=== PATIENT | male | born 1970 | race Caucasian/White ===

== ENCOUNTER 2016-08-26 15:02 | Emergency (ER) ==
--- NOTE | 2016-08-26 15:41 | EKG Report ---
Test Performed on : 08/26/2016 3:36:45 PM Test Reason : Chest Pain Blood Pressure : / mmHG Vent. Rate : 090 BPM Atrial Rate : 090 BPM P-R Int : 172 ms QRS Dur : 082 ms QT Int : 356 ms P-R-T Axes : 045 072 041 degrees QTc Int : 435 ms Normal sinus rhythm. Normal ECG No previous ECGs available Unconfirmed Result
[2016-08-26] MEDS ORDERED: PHENERGAN IM ONE (16:45)
[2016-08-26] MEDS ORDERED: NUBAIN IM ONE (16:45)
--- NOTE | 2016-08-26 17:04 | PROVIDER DOCUMENTATION ---
HPI-General Adult - General Source: patient - History of Present Illness -Gen Adult Nature of Presenting Problems: Pt is a 46 yom who presents to ER with CC of anxiety and chest pain. Pt reports that his daughter has been missing x6 days. Pt reports that today, he began to develop anterior chest wall pain and sob. Pt reports that he has also had a migraine headache x6 days, with nuasea and photophobia/lightheadedness. Pt denies cough/fever/chills. Location of Pain/Injury: reports: head, chest Pain Radiation: reports: no radiation Quality of Pain: reports: aching, dull Severity: reports: moderate Onset/Duration: reports: 6 days ago, this morning Timing: reports: constant Associated Symptoms: reports: anxiety, chest pain, dizziness, fever/chills, headaches, nausea. 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 Time Seen by Provider: 08/26/16 16:31 Allergies/Adverse Reactions: Patient Allergies Allergy/AdvReac Type Severity Reaction Status Date / Time No Known Allergies Allergy Verified 08/26/16 18:26 Home Medications: Home Medication List Medication Instructions Recorded Confirmed Last Taken Type Ibuprofen 800 mg PO PRN PRN 01/03/15 01/03/15 01/02/15 15:00 History Ondansetron HCl [Zofran] 4 mg PO Q8H PRN #15 tablet 01/03/15 Unknown Rx Tramadol HCl [Ultram] 50 mg PO Q6H PRN #20 tablet 01/03/15 Unknown Rx Diazepam [Valium] 5 mg PO HS #14 tablet 02/28/15 Unknown Rx Lorazepam [Ativan] 1 mg PO QHS #7 tablet 08/26/16 Unknown Rx Review of Systems - Adult - REVIEW OF SYSTEMS - ADULT Constitutional: denies: chills, fever, fatique, night sweats, weight loss Eyes: reports: no symptoms reported Ears, Nose, Mouth & Throat: reports: no symptoms reported Cardiovascular: reports: chest pain. denies: edema, heart murmur, irregular heart rate, palpitations, poor circulation, syncope Respiratory: reports: shortness of breath. denies: cough, dyspnea on exertion, excessive sputum production, pleurisy, wheezing Gastrointestinal: reports: nausea. denies: abdominal pain, hematemesis, constipation, diarrhea, difficulty swallowing, frequent heartburn, poor appetite , vomiting Genitourinary: reports: no symptoms reported Musculoskeletal: reports: no symptoms reported Integumentary: reports: no symptoms reported Neurological: reports: dizziness/vertigo, headache/migraines. denies: ataxia, loss of balance, numbness, paresthesia, seizure, slurred speech, syncope, tremors Psychiatric: reports: anxiety. denies: anti-depressant use, alcohol/drug dependence, depression, emotional problems, insomnia, panic attacks, suicidal thoughts Endocrine: reports: no symptoms reported Hematologic/Lymphatic: reports: no symptoms reported Allergic/Immunologic: reports: no symptoms reported All Other Systems: Reviewed and Negative <Kennedy Hammond - Last Filed: 08/26/16 16:59> Past History - Adult - PAST MEDICAL HISTORY-ADULT Review of Records: reports: Nursing Assessment Review, Medications Reviewed - PRIOR SURGERIES/PROCEDURES Surgical/Procedure History: reports: hernia repair, joint replacement - PRIOR HOSPITALIZATIONS Prior Hospitalizations: reports: for other non-related - IMMUNIZATION STATUS Childhood Immunizations: See Nurse Assessment Flu Vaccine: See Nurse Assessment <Kennedy Hammond - Last Filed: 08/26/16 16:59> Physical Exam-General - PHYSICAL EXAM-ADULT Initial Vital Signs Reviewed: Yes - CONSTITUTIONAL General Appearance: appears well, alert, moderate distress, anxious. negative: obtunded, combative - EYES Eyes: PERRL/EOMI, pink conjunctivae, fundi clear, no AV nicking, photophobia. negative: pale conjunctivae, sclera injected, scleral icterus, subconjunctival hemorrhage - RESPIRATORY Respiratory: chest non-tender, lungs clear, normal breath sounds. negative: respiratory distress, decreased breath sounds, accessory muscle use, wheezing - CARDIOVASCULAR Cardiovascular: normal peripheral pulses, regular rate, rhythm. negative: bradycardia, tachycardia, irregularly irregular - GASTROINTESTINAL (ABDOMEN) Abdominal Exam: normal bowel sounds, non tender, soft. negative: abnormal bowel sounds, distended, tenderness, mass - MUSCULOSKELETAL Extremity: normal range of motion, non-tender, normal gait. negative: deformity , erythema, inflammation, pedal edema, swelling, tenderness - NEUROLOGIC Neurologic: grossly normal, no motor/sensory deficits. negative: facial droop, focal weakness, motor weakness, sensory deficit - PSYCHIATRIC Psych/Mental Status: normal thought content, normal thought process, oriented x 3, anxious <Kennedy Hammond - Last Filed: 08/26/16 16:59> Progress - PLAN OF CARE/RESULTS Progress/Plan/Lab Results: Vital Signs Temp Pulse Resp BP Pulse Ox 08/26/16 18:16 97.9 F 77 18 128/79 100 08/26/16 15:30 97.4 F L 95 H 20 156/81 98 No Known Allergies Allergy (Verified 08/26/16 18:17) Ibuprofen 800 mg PO PRN PRN 01/03/15 Ondansetron HCl [Zofran] 4 mg PO Q8H PRN #15 tablet 01/03/15 Tramadol HCl [Ultram] 50 mg PO Q6H PRN #20 tablet 01/03/15 Diazepam [Valium] 5 mg PO HS #14 tablet 02/28/15 Laboratory 08/26/16 08/26/16 08/26/16 15:43 15:43 15:43 WBC RBC Hgb Hct MCV MCH MCHC RDW Std Deviation Plt Count MPV Immature Gran % (Auto) Neut % (Auto) Lymph % (Auto) Thurston % (Auto) Eos % (Auto) Baso % (Auto) Immature Gran # (Auto) Neut # (Auto) Lymph # (Auto) Thurston # (Auto) Eos # (Auto) Baso # (Auto) PT 11.2 INR 1.06 PTT (Actin FS) 25.1 D-Dimer Sodium Potassium Chloride Carbon Dioxide Anion Gap BUN Creatinine Estimated GFR/1.73 m2 BUN/Creatinine Ratio Glucose Calculated Osmolality Calcium Magnesium Total Bilirubin AST ALT Alkaline Phosphatase Creatine Kinase Creatine Kinase Index CK-MB (CK-2) Troponin T < 0.010 [id number] Pept 47 Total Protein Albumin Globulin Albumin/Globulin Ratio 08/26/16 08/26/16 08/26/16 15:43 15:43 15:43 WBC 8.16 RBC 5.24 Hgb 15.6 Hct 44.7 MCV 85.3 MCH 29.8 MCHC 34.9 RDW Std Deviation 12.7 Plt Count 304 MPV 10.2 Immature Gran % (Auto) 0.2 Neut % (Auto) 61.8 Lymph % (Auto) 27.5 Thurston % (Auto) 8.3 Eos % (Auto) 1.7 Baso % (Auto) 0.5 Immature Gran # (Auto) 0.02 Neut # (Auto) 5.04 Lymph # (Auto) 2.24 Thurston # (Auto) 0.68 H Eos # (Auto) 0.14 Baso # (Auto) 0.04 PT INR PTT (Actin FS) D-Dimer 0.11 Sodium 136 Potassium 3.8 Chloride 97 L Carbon Dioxide 25 Anion Gap 14 BUN 12 Creatinine 0.9 Estimated GFR/1.73 m2 > 60 BUN/Creatinine Ratio 13 Glucose 86 Calculated Osmolality 271 Calcium 9.3 Magnesium 2.0 Total Bilirubin 0.25 AST 18 ALT 28 Alkaline Phosphatase 86 Creatine Kinase 281 H Creatine Kinase Index 1.2 CK-MB (CK-2) 3.34 Troponin T [id number] Pept Total Protein 7.1 Albumin 4.4 Globulin 2.7 Albumin/Globulin Ratio 1.6 Orders Category Date Time Status CHEST-2 VIEWS [RAD] Stat Exams 08/26/16 15:11 Draft CBC WITH ELECTRONIC DIFF [HEME] Stat Lab 08/26/16 15:43 Completed CK PROFILE [SP CHEM] Stat Lab 08/26/16 15:43 Completed COMPREHENSIVE METABOLIC PANEL [CHEM] Stat Lab 08/26/16 15:43 Completed D-DIMER [CHEM] Stat Lab 08/26/16 15:43 Completed MAGNESIUM [CHEM] Stat Lab 08/26/16 15:43 Completed PRO B-NATRIURETIC PEPTIDE Stat Lab 08/26/16 15:43 Completed PROTIME WITH INR [COAG] Stat Lab 08/26/16 15:43 Completed PTT [COAG] Stat Lab 08/26/16 15:43 Completed TROPONIN T Stat Lab 08/26/16 15:43 Completed Nalbuphine [Nubain] Med 08/26/16 16:45 Discontinued 10 mg IM NOW ONE Promethazine [Phenergan] Med 08/26/16 16:45 Discontinued 25 mg IM NOW ONE EKG [EKG] Stat Ther 08/26/16 15:11 Draft - XRAY 1 XRAY: Bilateral XRAY Study: Chest Impression: Normal (NAD per radiology) <Kenyatta Rosen - Last Filed: 08/26/16 18:27> Departure <Kennedy Hammond - Last Filed: 08/26/16 16:59> - Departure Time of Disposition Order: 18:26 Certified Medical Emergency: Emergent <Kenyatta Rosen - Last Filed: 08/26/16 18:27> - Departure DIAGNOSIS: Anxiety Migraine Qualifiers: Migraine type: without aura Status migrainosus presence: without status migrainosus Intractability: not intractable Qualified Code(s): G43.009 - Migraine without aura, not intractable, without status migrainosus Disposition: HOME 01 Condition: Stable Additional Instructions: ED Follow Up Instructions: You have been treated by a care provider in the Emergency Department. These instructions are being provided to you so you can have an understanding of how to care for yourself upon discharge. Upon discharge from the Emergency Department, you are responsible for making arrangements for follow-up care by a physician of your choice. Take all prescribed medications as directed. Return to the Emergency Department immediately for any new or worsening symptoms. You may call the Physician Referral phone number at [phone] to obtain a list of Physicians who are taking new patients. Prescriptions: Lorazepam [Ativan] 1 mg PO QHS #7 tablet Attestation - Scribe Verification/Attestation Scribe:: Kennedy Hammond Acting as Scribe for:: Kenyatta Rosen Scribe documention review:: This chart was documented by a scribe and accurately reflects the service the provider performed and the decisions made by the provider. <Kennedy Hammond - Last Filed: 08/26/16 16:59> - Physician/ MEHUL Attestation Patient care was provided by Advanced Practice Provider:: Yes Advanced Practice Provider:: Kenyatta Rosen Advanced Practice Provider documentation review:: The Mid-level provider documentation, treatment plan and medical decision making was reviewed by the physician who agrees with all treatment and medical decision making by the MLP. <Kenyatta Rosen - Last Filed: 08/26/16 18:27> Physician Attestation
--- NOTE | 2016-08-26 17:20 | Diag Imaging Result Document ---
PROCEDURE NAME: CHEST-2 VIEWS - 08/26/2016 FRONTAL AND LATERAL CHEST, TWO VIEWS: FINDINGS: The lungs are well expanded. The heart is not enlarged. The vessels are not distended. No pneumonia. No pleural effusions. No free air beneath the diaphragm. IMPRESSION: No acute abnormality.
[2016-08-26 17:31] LABS: MANUAL DIFF NEEDED? NO
[2016-08-26 17:36] LABS: BASO% 0.5 % (0.0-0.8); EOS# 0.14 X1000 (0.0-0.7); EOS% 1.7 % (0.0-10.0); HEMATOCRIT 44.7 % (42.0-52.0); HEMOGLOBIN 15.6 g/dL (14.0-18.0); IMM GRAN# 0.02 X1000 (0.0-0.04); IMM GRAN% 0.2 % (0.0-0.5); LYMPH# 2.24 X1000 (1.2-3.4); LYMPH% 27.5 % (20.5-51.1); MCH 29.8 PG (27-31); MCHC 34.9 g/dL (33-37); MCV 85.3 FL (81-99); MONO# 0.68 X1000 (0.11-0.59); MONO% 8.3 % (1.7-9.3); MPV 10.2 FL (7.4-10.4); NEUT% 61.8 % (42.2-75.2); PLT 304 X1000 (130-400); RBC 5.24 XMIL (4.7-6.1)
[2016-08-26 17:45] LABS: INR 1.06; PROTIME 11.2 Seconds (9.2-11.7); PTT 25.1 Seconds (22.0-36.0)
[2016-08-26 17:59] LABS: AGAP 14; ALBUMIN 4.4 g/dL (3.5-5.0); ALKALINE PHOSPHATASE 86 U/L (32-122); BUN 12 mg/dL (8-22); CALCIUM 9.3 mg/dL (8.8-10.2); CHLORIDE 97 mmol/L (98-107); COSMO 271; GOT 18 U/L (10-34); GPT 28 U/L (10-44); POTASSIUM 3.8 mmol/L (3.5-5.1); SODIUM 136 mmol/L (136-145); TCO2 25 mmol/L (25-35); TOTAL BILIRUBIN 0.25 mg/dL (0.20-1.00); TOTAL PROTEIN 7.1 g/dL (6.3-8.3)
[2016-08-26 18:02] LABS: CK PROFILE 281 U/L (24-204)
[2016-08-26 18:17] VITALS: BP 128/79
[2016-08-26 18:23] LABS: CK INDEX 1.2 (0.0-2.5); CK-MB 3.34 ng/mL (0.0-5.0)
== END 2016-08-26 18:33 | disposition home or self-care (01) ==
LOC: ED 15:02
DX: G43.009 Migraine without aura, not intractable, without status migrainosus (principal); F41.9 Anxiety disorder, unspecified; R07.9 Chest pain, unspecified; R06.02 Shortness of breath; R11.0 Nausea; R42 Dizziness and giddiness; H53.149 Visual discomfort, unspecified
CPT/HCPCS: 71020; 80053; 82550; 82553; 83735; 83880; 84484; 85025; 85379; 85610; 85730; 93005; J2300; J2550